=== PATIENT | male | born 1950 ===

== ENCOUNTER → 2018-03-17 23:15 | Outpatient (REF) | payer OTHER, SELFPAY ==
[2018-03-18 00:36] LABS: Uric Acid 8.8 mg/dL (3.5-8.5)
== END ==
LOC: LAB 23:15
PROVIDERS: Visit Provider Naturopath
DX: M10.00 Idiopathic gout, unspecified site (principal)
CPT/HCPCS: 36415; 84550

== ENCOUNTER → 2018-05-02 22:52 | Outpatient (REF) | payer OTHER, SELFPAY ==
[2018-05-03 01:39] LABS: Uric Acid 8.6 mg/dL (3.5-8.5)
== END ==
LOC: LAB 22:52
PROVIDERS: Visit Provider Naturopath
DX: M10.039 Idiopathic gout, unspecified wrist (principal)
CPT/HCPCS: 36415; 84550